=== PATIENT | female | born 1970 | race African-American/Black ===

== ENCOUNTER 2021-12-25 15:05 | Emergency (ER) | payer OTHER, BC, SELFPAY ==
[2021-12-25] VITALS (20 sets, daily range): BP systolic 117–142; BP diastolic 73–94; PULSE 63–83; RESP 11–22; TEMP 36.5; O2SAT 97–100
--- NOTE | ~2021-12-25 | XR_ITS ---
EXAMINATION: XR chest 2V Exam Date/Time: 12/25/2021 15:20 CDT HISTORY: LEFT SIDE CP INTO LEFT NECK TODAY, DENIES MED HX, SOB Comparison: 11/22/2010. RESULT: Lines, tubes, and devices: None. Lungs and pleura: Clear. Cardiomediastinal silhouette: Stable. Other: No acute osseous or upper abdominal finding. IMPRESSION: No acute cardiopulmonary process. Reviewed, dictated and finalized at location [facility].
--- NOTE | 2021-12-25 15:20 | ECG_ITS ---
Measurements Intervals [place] Rate: 74 P: 40 CO: 137 QRS: 55 QRSD: 86 T: 59 QT: 362 QTc: 402 Interpretive Statements SINUS RHYTHM NORMAL ELECTROCARDIOGRAM NO PREVIOUS ECG AVAILABLE FOR COMPARISON Electronically Signed On 12-25-2021 17:13:23 CDT by Ozzy Grullon M.D.
--- NOTE | 2021-12-25 15:27 | PC.NURSE ---
Pt taken to radiology
[2021-12-25 15:36] LABS: Basophils Absolute Auto 0.1 K/mm3 (0.0-0.1); Basophils Percent Auto 0.7 % (0.2-1.2); Eosinophils Absolute Auto 0.1 K/mm3 (0-0.3); Eosinophils Percent Auto 1.1 % (0-4.4); Hematocrit 40.5 % (37.0-47.0); Hemoglobin 13.1 g/dL (12.0-15.0); Immature Granulocyte Absolute 0.02 K/mm3 (0.00-0.031); Immature Granulocyte Percent A 0.2 % (0-0.5); Lymphocytes Absolute Auto 3.42 K/mm3 (0.9-3.2); Lymphocytes Percent Auto 35.1 % (18.3-44.2); Mean Corpuscular HGB Conc 32.3 g/dl (32-36); Mean Corpuscular Hemoglobin 28.2 pg (26-34); Mean Corpuscular Volume 87.3 fl (80-100); Mean Platelet Volume 11.1 fl (7.4-10.4); Monocytes Absolute Auto 0.8 K/mm3 (0.1-0.6); Monocytes Percent Auto 8.3 % (2.6-8.5); Neutrophils Absolute Auto 5.3 K/mm3 (1.3-6.7); Neutrophils Percent Auto 54.6 % (45.5-73.1); Platelet Count Result 235 k/mm3 (150-375); Red Blood Count 4.64 M/mm3 (4.2-5.4); White Blood Count 9.7 K/mm3 (4.5-10.0)
[2021-12-25 15:44] LABS: Alanine Aminotransferase 18 U/L (6-35); Albumin Level 4.6 g/dL (3.5-5.1); Alkaline Phosphatase 105 U/L (38-126); Anion Gap 3 mmol/L (8-16); Aspartate Amino Transferase 24 U/L (14-36); Bilirubin,Total < 0.1 mg/dL (0.2-1.3); Blood Urea Nitrogen 11 mg/dL (7-17); Calcium 9.2 mg/dL (8.4-10.2); Carbon Dioxide 30 mmol/L (22-30); Chloride 103 mmol/L (98-107); Estimated CRCL calculation 64 ml/min; Estimated Glomerular Filt Rate > 60; Glucose 116 mg/dL (65-110); Lipase 44 U/L (23-300); Potassium 3.7 mmol/L (3.4-5.0); Sodium 136 mmol/L (137-145)
[2021-12-25 15:53] LABS: Prothrombin Time 12.3 Seconds (11.1-14.7)
[2021-12-25 15:54] LABS: Partial Thromboplastin Time 34.1 SECONDS (22.3-36.8)
[2021-12-25 15:56] LABS: Troponin I < 0.012 ng/mL (0.000-0.034)
--- NOTE | 2021-12-25 16:41 | ED.CHESTPAIN ---
HPI - Chest Pain General Chief Complaint: Chest Pain Stated Complaint: chest pain that has resolved Time Seen by Provider: 12/25/21 16:41 Source: patient and family Mode of arrival: ambulatory Limitations: no limitations History of Present Illness HPI narrative: 51 years old -[place] female presented to the ED with sudden onset of aches across the chest bilaterally mainly on the left going to her neck and jaw lasted for 2 minutes while sitting on the computer working on a presentation. She denies any fever, chills, nausea, vomiting, shortness of breath, back pain or abdominal pain. Patient does not take medicine at home, she denies any smoking drinking or using drugs, history of IBS and migraine headache. Related Data Allergies Allergy/AdvReac Type Severity Reaction Status Date / Time No Known Allergies Allergy Mild Verified 07/19/10 15:35 Review of Systems Review of Systems: All systems reviewed & are unremarkable except as noted in HPI and below PMFSH Social History Social History Smoking status: Never smoker Second hand tobacco smoke exposure: No Alcohol intake: never Course Vital Signs Vital signs: Vital Signs Temperature 36.5 C 12/25/21 15:16 Pulse Rate 76 12/25/21 15:16 Respiratory Rate 18 12/25/21 15:16 Blood Pressure 142/80 H 12/25/21 15:16 Pulse Oximetry 100 12/25/21 15:16 Oxygen Delivery Room Air 12/25/21 15:16 Temperature 36.5 C 12/25/21 15:16 Pulse Rate 65 12/25/21 19:31 Respiratory Rate 16 12/25/21 19:31 Blood Pressure 133/85 12/25/21 19:31 Pulse Oximetry 100 12/25/21 19:31 Oxygen Delivery Room Air 12/25/21 15:16 MDM - Chest Pain Differential Diagnosis Differential diagnosis: Likely atypical chest pain, costochondritis, chest pain and other (Anxiety-like symptoms) Lab Data Result diagrams: 12/25/21 15:26 12/25/21 15:26 Labs: Lab Results 12/25/21 12/25/21 12/25/21 Range/Units 15:26 15:26 15:26 WBC 9.7 (4.5-10.0) K/mm3 RBC 4.64 (4.2-5.4) M/mm3 Hgb 13.1 (12.0-15.0) g/dL Hct 40.5 (37.0-47.0) % MCV 87.3 (80-100) fl MCH 28.2 (26-34) pg MCHC 32.3 (32-36) g/dl RDW 14.0 (11.5-14.5) % Plt Count 235 (150-375) k/mm3 MPV 11.1 H (7.4-10.4) fl Immature Gran % (Auto) 0.2 (0-0.5) % Neut % (Auto) 54.6 (45.5-73.1) % Lymph % (Auto) 35.1 (18.3-44.2) % [place] % (Auto) 8.3 (2.6-8.5) % Eos % (Auto) 1.1 (0-4.4) % Baso % (Auto) 0.7 (0.2-1.2) % Lymph # (Auto) 3.42 H (0.9-3.2) K/mm3 [place] # (Auto) 0.8 H (0.1-0.6) K/mm3 Eos # (Auto) 0.1 (0-0.3) K/mm3 Baso # (Auto) 0.1 (0.0-0.1) K/mm3 Abs Immat Gran (auto) 0.02 (0.00-0.031) K/mm3 Absolute Neuts (auto) 5.3 (1.3-6.7) K/mm3 Absolute Nucleated RBC 0.0 (0.0-0.012) K/mm3 Nucleated RBC % 0.0 (0.0-0.2) % PT 12.3 (11.1-14.7) Seconds INR 1.0 APTT 34.1 (22.3-36.8) SECONDS Sodium 136 L (137-145) mmol/L Potassium 3.7 (3.4-5.0) mmol/L Chloride 103 (98-107) mmol/L Carbon Dioxide 30 (22-30) mmol/L Anion Gap 3 L (8-16) mmol/L BUN 11 (7-17) mg/dL Creatinine 0.80 (0.7-1.0) mg/dL Estim Creat Clear Calc 64 ml/min Estimated GFR > 60 (59 - ) Glucose 116 H (65-110) mg/dL Calcium 9.2 (8.4-10.2) mg/dL Total Bilirubin < 0.1 L (0.2-1.3) mg/dL AST 24 (14-36) U/L ALT 18 (6-35) U/L Alkaline Phosphatase 105 (38-126) U/L Troponin I < 0.012 (0.000-0.034) ng/mL Total Protein 9.0 H (6.3-8.2) g/dL Albumin 4.6 (3.5-5.1) g/dL Lipase 44 (23-300) U/L // Range/Units 18:14 WBC (4.5-10.0) K/mm3 RBC (4.2-5.4) M/mm3 Hgb (12.0-15.0) g/dL Hct (37.0-47.0) % MCV (80-100) fl MCH (26-34) pg MCHC (32-36) g/dl RDW (11.5-14.5) % Plt Count (150-375) k/mm3 MPV (7.4-10.4) fl Immature Gran % (Auto) (0-0.5) %
[2021-12-25 18:53] LABS: Troponin I < 0.012 ng/mL (0.000-0.034)
== END 2021-12-25 20:53 | disposition home or self-care (01) ==
PROVIDERS: Emergency Provider Emergency Medicine; PCP Hospitalist
DX: R07.89 Other chest pain (principal); F41.9 Anxiety disorder, unspecified
CPT/HCPCS: 36415; 71046; 80053; 83690; 84484; 85025; 85610; 85730; 93005; 99284